=== PATIENT | male | born 1980 | race Caucasian/White ===

== ENCOUNTER → 2017-01-02 | Outpatient (CLI) | payer BC ==
--- NOTE | ~2017-01-02 | MR113 ---
[facility] A Service of [facility] & [facility] RADIOLOGY TEXT RESULTS PATIENT: AUDRA PRESSLEY LOCATION: [facility] : 84 UNIT #: [id number] AGE: [address]: Josiah Hernandez MD SEX: M ORDER DR: [id number] [address] [address] [id number] O MR#: [id number] Acc #: [id number] NAME: AUDRA PRESSLEY : 1980 SEX: M STUDY DATE/TIME: 01/02/2017 10:58 UNIT: [facility] ROOM: STUDY DESCRIPTION: MR Lumbar Wo Contrast Attending Physician: Josiah Hernandez M.D. Referring Physician: Josiah Hernandez M.D. Ordering Physician: Josiah Hernandez M.D. Primary Care Physician: Josiah Hernandez M.D. MRI CENTER REPORT This report is preliminary unless electronic signature is present. EXAM MRI of the lumbar spine without contrast dated 01/02/2017 COMPARISON Plain films lumbar spine dated 12/19/2016 HISTORY Increased low back pain, worse on the left side for the last 3 weeks approximately. Abnormal x-rays. FINDINGS Multisequence multiplanar imaging of the lumbar spine was obtained without contrast. Vertebral body heights are preserved. There is minimal anterolisthesis of L5 with respect to S1 and L4 by 3.0-4.0 mm. Bilateral L5 pars defects are seen. Pre and paravertebral soft tissues do not demonstrate any significant abnormality. Conus terminates at L1. Signal of conus and cauda equina are within normal limits. Degenerative disc disease is at L4-5. L1-2, L2-3: Unremarkable. L3-4: Concentric disc bulge with borderline-sized canal. No neural foraminal narrowing. L4-5: Concentric disc bulge with superimposed zoidy-mt-mlup subarticular moderate broad-based protrusion with an extruded component in the left yqbbxhy-xa-udgaixmrwsic region measuring 1.1 cm. Mild left lateral recess and mild inferior bilateral neural foraminal narrowing are noted with borderline size canal. L5-S1: Mild disc bulge without canal stenosis or neural foraminal narrowing. [facility] A Service of [facility] & [facility] RADIOLOGY TEXT RESULTS PATIENT: AUDRA PRESSLEY LOCATION: [facility] : 84 UNIT #: [id number] AGE: [address]: Josiah Hernandez MD SEX: M ORDER DR: IMPRESSION 1. Bilateral L5 pars defects are noted with grade 1 anterolisthesis of L5 with respect to L4 and S1. 2. Degenerative changes are noted at L4-5 with kbrrl-yi-vomk subarticular moderate broad-based disc protrusion with an extruded component in the left ndsoayv-qk-uvmtlomjxnsm region measuring 1.1 cm in height. 3. Refer above to the detailed dictated report. Dictated by... Julius Chaney M.D. THIS IS AN ELECTRONICALLY VERIFIED REPORT Julius Chaney M.D. at 01/03/2017 11:36 AM PAUL/raegan TD: 01/03/2017 11:29 JOB #: [id number] MRI CENTER REPORT Page 1 of 1
== END | disposition home or self-care (01) ==
LOC: SMRI 01-01 08:45
DX: M43.16 Spondylolisthesis, lumbar region (principal); M43.17 Spondylolisthesis, lumbosacral region; M47.896 Other spondylosis, lumbar region; M51.26 Other intervertebral disc displacement, lumbar region; M51.86 Other intervertebral disc disorders, lumbar region; M51.87 Other intervertebral disc disorders, lumbosacral region
CPT/HCPCS: 72148